=== PATIENT | female | born 1975 | race Caucasian/White ===

== ENCOUNTER 2018-03-15 16:35 | Emergency (ER) | payer SELFPAY | END 2018-03-15 16:47 | disposition left against medical advice (07) | LOC: DL.ED 16:35 | DX: Z53.21 Procedure and treatment not carried out due to patient leaving prior to being seen by health care provider (principal) ==

== ENCOUNTER 2020-12-26 18:47 | Emergency (ER) | payer MEDICAID ==
--- NOTE | 2020-12-26 19:17 | EDM.PDOC ---
ED HPI GENERAL MEDICAL PROBLEM - General Chief Complaint: General Stated Complaint: RING STUCK Time Seen by Provider: 12/26/20 19:08 Source of Information: Reports: Patient, RN, RN Notes Reviewed History Limitations: Reports: No Limitations - History of Present Illness INITIAL COMMENTS - FREE TEXT/NARRATIVE: Patient presents to the ED via personal vehicle with complaints of pain to third right digit due to a too small ring. The patient states she usually removes the ring every night, but was unable to remove it last night due to swelling. She attempted to remove the ring with oils and lotions throughout the day, but was unsuccessful. She denies loss of motor or sensory function to the digit. She has not taken any medication for pain. She states she has no sentimental value to the ring and would like it removed. Rt. 4th finger pain. Pain Score (Numeric/FACES): 9 - Related Data Allergies Allergy/AdvReac Type Severity Reaction Status Date / Time No Known Allergies Allergy Verified 12/26/20 19:03 Home Meds: Home Meds . [No Known Home Meds] 12/26/20 [History] ED ROS GENERAL - Review of Systems Review Of Systems: Comprehensive ROS is negative, except as noted in HPI. ED EXAM, GENERAL - Physical Exam Exam: See Below Exam Limited By: No Limitations General Appearance: Alert, No Apparent Distress Throat/Mouth: Normal Inspection, Normal Voice, No Airway Compromise Head: Atraumatic, Normocephalic Respiratory/Chest: No Respiratory Distress, Lungs Clear, Normal Breath Sounds, No Accessory Muscle Use, Chest Non-Tender Cardiovascular: Normal Peripheral Pulses, Regular Rate, Rhythm, No Edema, No Gallop, No JVD, No Murmur, No Rub Peripheral Pulses: 2+: Radial (L), Radial (R) Extremities: Slow Capillary Refill (To right third digit), Joint Swelling (To right third digit), Arm Pain (Pain to right third digit), Mottled (To right third digit), Redness (To right third digit). No: Pallor Neurological: Alert, Oriented, CN II-XII Intact, Normal Cognition, Normal Gait, No Motor/Sensory Deficits Psychiatric: Anxious Skin Exam: Dry, Cool (To right third digit), Mottled (To right third digit), Wound/Incision (To posterior, medial aspect of right third digit) Course - Vital Signs Last Recorded V/S: Last Vital Signs Temp 98.2 F 12/26/20 18:56 Pulse 100 12/26/20 18:56 Resp 16 12/26/20 18:56 BP 102/61 12/26/20 19:10 Pulse Ox 98 12/26/20 18:56 - Re-Assessments/Exams Free Text/Narrative Re-Assessment/Exam: 12/26/20 Ring removed from right third digit utilizing the rotary ring cutter, without complication. Patient verbalized immediate relief to digit. Discussed supportive cares, including ice and movement of joint. Patient verbalized understanding and agreement with the plan of care. Departure - Departure Time of Disposition: 19:10 Disposition: Home, Self-Care 01 Condition: Good Clinical Impression: Ring or other jewelry causing external constriction, initial encounter Injury of right middle finger Qualifiers: Encounter type: initial encounter Qualified Code(s): S69.91XA - Unspecified injury of right wrist, hand and finger(s), initial encounter - Discharge Information *PRESCRIPTION DRUG MONITORING PROGRAM REVIEWED*: Not Applicable *COPY OF PRESCRIPTION DRUG MONITORING REPORT IN PATIENT WILLIAM: Not Applicable Forms: ED Department Discharge Additional Instructions: 1.) Continue to apply ice to injured finger, as swelling persists. 2.) You may take ibuprofen (Advil/Motrin) 400mg every six hours, as pain and swelling persists. You may also take acetaminophen (Tylenol) 650mg every six hours, as pain persists. You may stagger these medications so you are receiving a dose every three hours. 3.) You may apply a bandage to the open area on the back of your finger. Sepsis Event Note (ED) - Evaluation Sepsis Screening Result: No Definite Risk - Focused Exam Vital Signs: Vital Signs Temp Pulse Resp BP Pulse Ox 12/26/20 19:10 102/61 12/26/20 18:56 98.2 F 100 16 98
== END 2020-12-26 19:26 | disposition home or self-care (01) ==
LOC: DL.ED 18:47
DX: S60.442A External constriction of right middle finger, initial encounter (principal); W49.04XA Ring or other jewelry causing external constriction, initial encounter
CPT/HCPCS: 99282; 99283